=== PATIENT | female | born 1995 | race African-American/Black ===

== ENCOUNTER 2017-11-27 10:55 | Emergency (ER) | payer SELFPAY ==
[~2017-11-27] VITALS: Ht 157.5 cm; Wt 68.0 kg
[2017-11-27 10:57] VITALS: BP 117/75; PULSE 122; RESP 20; TEMP 98.3; O2SAT 98
[2017-11-27] MEDS ORDERED: SODIUM CHLOR 0.9% 1000 ML INJ 1,000 ML IV ONE ×2 (11:30→12:30)
[2017-11-27] MEDS ORDERED: ONDANSETRON HCL 4 MG/2 ML VIAL IV PUSH ONE (11:30)
[2017-11-27] MEDS ORDERED: KETOROLAC TROMETHAMINE 30 MG/ML (IVP) VIAL IV PUSH ONE (11:30)
--- NOTE | 2017-11-27 11:36 | PD ---
HPI . Abdominal pain Chief Complaint: GI Complaint Time Seen by Provider: 11:06 Travel History International Travel<30 days: No Contact w/Intl Traveler<30days: No Traveled to known affect area: No History of Present Illness HPI This patient presents with a 2 to three-day history of abdominal pain. She states that she ate lunch 3 days ago and subsequently developed upper abdominal pain which was followed by an episode of emesis. She states that she vomited twice yesterday. She has not vomited at all today. However, she continues to have upper abdominal pain. She rates the pain 6/10. Modifying factors. Interestingly, she took the plan B yesterday. PFSH Past Medical History ?: Not Social History Tobacco Use: No Allergies-Medications (Allergen,Severity, Reaction): Coded Allergies: No Known Allergies (Unverified , 11/27/17) Reported Meds & Prescriptions Reported Meds & Active Scripts Active No Active Prescriptions or Reported Medications Review of Systems Except as stated in HPI: all other systems reviewed are Neg General / Constitutional: No: Fever, Chills Gastrointestinal: Positive: Nausea, Vomiting, Abdominal Pain Genitourinary: No: Dyspareunia, Discharge, Vaginal Bleeding Physical Exam Narrative GENERAL: Awake and alert and in no acute distress. SKIN: Warm and dry. Normal color and turgor. HEAD: Normocephalic/atraumatic. EYES: Pupils are equal. Extraocular movements are intact. ENT: Mucous membranes are pink and moist. NECK: Normal range of motion. CARDIOVASCULAR: Regular rate and rhythm. She is tachycardic. RESPIRATORY: Nonlabored respirations. Lungs are clear with good air movement throughout. ABDOMEN: Minimal upper abdominal tenderness with no guarding or rebound. Bowel sounds are present. MUSCULOSKELETAL: Atraumatic. NEUROLOGICAL: Nonfocal. PSYCHIATRIC: Appropriate mood and affect. Data Data Last Documented VS Vital Signs Date Time Temp Pulse Resp B/P (MAP) Pulse Ox O2 Delivery O2 Flow Rate FiO2 11/27/17 10:57 98.3 122 20 117/75 (89) 98 Orders Orders Urinalysis - C+S If Indicated (11/27/17 11:16) Ed Urine Pregnancytest Poc (11/27/17 11:16) ^ Saline Lock (11/27/17 11:16) Sodium Chlor 0.9% 1000 Ml Inj (Ns 1000 M (11/27/17 11:30) Ondansetron Inj (Zofran Inj) (11/27/17 11:30) Ketorolac Inj (Toradol Inj) (11/27/17 11:30) Sodium Chlor 0.9% 1000 Ml Inj (Ns 1000 M (11/27/17 12:30) Labs Laboratory Tests Test 11/27/17 11:40 Urine Color YELLOW Urine Turbidity HAZY Urine pH 6.0 Urine Specific [place] 1.039 Urine Protein 30 mg/dL Urine Glucose (UA) NEG mg/dL Urine Ketones 80 mg/dL Urine Occult Blood TRACE Urine Nitrite NEG Urine Bilirubin NEG Urine Urobilinogen 2.0 MG/DL Urine Leukocyte Esterase NEG Urine RBC 4 /hpf Urine WBC 2 /hpf Urine Squamous Epithelial Cells 6 /hpf Urine Mucus FEW /lpf Microscopic Urinalysis Comment CULT NOT INDICATED MDM Medical Decision Making Medical Screen Exam Complete: Yes Emergency Medical Condition: Yes Differential Diagnosis Differential diagnosis of abdominal pain includes but is not limited to gastritis, pancreatitis, hepatitis, gastroenteritis, gallbladder disease, constipation, urinary retention, UTI, peptic ulcer disease, diverticulitis or appendicitis Narrative Course This patient presents with upper abdominal pain and nausea and vomiting. Onset was 3 days ago. She took Plan B yesterday. So she took Plan B while in the midst of experiencing abdominal pain associated with nausea and vomiting. She reports only 3 episodes of emesis but is tachycardic. Her abdominal exam is benign. I will treat her with IV fluids and IV Zofran and Toradol. UA and test are pending. Further evaluation and treatment will depend upon her response to treatment and the results of the UA and test. 12:30 PM She has received 1 L of fluid. She has no urge to urinate. Her urine looks concentrated. She is still tachycardic. She will be given another liter of fluid. 1:05 PM This patient is now hungry and thirsty and is tolerating a by mouth challenge. She will be discharged to home. Diagnosis Primary Impression: Abdominal pain Qualified Codes: R10.10 - Upper abdominal pain, unspecified Additional Impression: Dehydration Patient Instructions: Abdominal Pain (ED), Acute Nausea and Vomiting (DC), General Instructions Scripts No Active Prescriptions or Reported Meds Disposition: 01 DISCHARGE HOME Condition: Stable Lauren Martínez MD Nov 27, 2017 11:35
[2017-11-27 12:20] LABS: BLOOD, URINE TRACE (NEG); GLUCOSE,URINE NEG (NEG); KETONE, URINE 80 mg/dL (NEG); MUCUS URINE FEW /lpf (OCC); NITRITE,URINE NEG (NEG); SQUAMOUS EPITHELIAL CELL URINE 6 /hpf (0-5); URINE COLOR YELLOW (YELLW/STRAW); URINE LEUKOCYTE ESTERASE NEG (NEG)
[2017-11-27 12:23] LABS: BILIRUBIN, URINE NEG (NEG)
[2017-11-27 13:49] VITALS: RESP 17
== END 2017-11-27 13:50 | disposition home or self-care (01) ==
LOC: NEPD 10:55
DX: R10.10 Upper abdominal pain, unspecified (principal); E86.0 Dehydration; R11.2 Nausea with vomiting, unspecified
CPT/HCPCS: 81001; 84703; 96361; 96374; 96375; 99284; J1885; J2405; J7030